=== PATIENT | female | born 1935 | race Caucasian/White ===

== ENCOUNTER 2017-03-17 10:41 | Inpatient (IN) | payer OTHER, MEDICAID ==
[~2017-03-17] VITALS: Ht 152.4 cm; Wt 61.0 kg
[~2017-03-17 10:41] MED LIST: ALLERGY10 MG PO; AMITRIPTYLINE50 MG PO; AMLODIPINE BES2.5 M1 PO; AMLODIPINE10 MG PO; BONIVA150 MG PO; CARVEDILOL3.125 MG PO; CEL100 PO; CLONIDINE HCL0.1 MG PO; CLONIDINE HCL0.2 M1 PO; COR10 PO; COZ25 PO; DOCUSATE SODIU100 PO; DURAGESIC12 MCG/HR TOP; ECOTRIN81 M1 PO; ESCITALOPRAM10 MG PO; GOOD SENSE ASPI81 M3 PO; HYDROCHLOROTHIA PO; HYDROCORT CREAM2.5% TOP; HYDROCORTISONE PO; LEVOTHYROXINE0.05 M2 PO; LEXAPRO10 MG PO; LOSARTAN POTASS50 MG PO; MASON NATURAL1000 IU PO; MECLIZINE25 M1 PO; MYL80 PO; NEXIUM20 M PO; NEXIUM40 MG PO; NIT0.4 SL; OYSTER CAL 500500 MG PO; PATADAY2.5 ML OU; PENTOXIFYLLINE400 M1 PO; PHECL PO; PREMARIN0.625 M PO; PREMARIN0.625 MG PO; PROMETHAZINE D118 ML PO; PROMETHAZINE PO; SYMBICORT1 AE2 INH; SYN25 PO; VITAMIN B121000 MCG PO; [UNRECOGNIZED DRUG - CODE] TOP
--- NOTE | 2017-03-17 10:57 | NUR ---
BROUGHT IN BY AMBULANCE, AWAKE ALERT ORIENTED, STATED HAS BEEN HAVING ABDOMINAL PAIN WITH N/VOMITING AND DIARRHEA SINCE ONE WEEK,
--- NOTE | 2017-03-17 12:04 | NUR ---
IV ESTABLISHED, BLOOD DRAWN ,MEDICATED ORDERD FOR PAIN,
[2017-03-17 12:12] LABS: CARBON DIOXIDE 16.9 mmol/L (21-32); CHLORIDE SERUM 105 mmol/L (98-107); CREATININE SERUM 1.5 mg/dL (0.6-1.0); GLUCOSE SERUM 74 mg/dL (74-106); PLATELET COUNT 322 x10^3mcL (130-400); POTASSIUM SERUM 4.5 mmol/L (3.5-5.1); SODIUM SERUM 138 mmol/L (136-145)
[2017-03-17 12:17] LABS: ALKALINE PHOSPHATASE 69 U/L (46-116); ALT/SGPT 16 U/L (14-59); AST/SGOT 22 U/L (15-37); BILIRUBIN TOTAL 0.35 mg/dL (0.20-1.00); TOTAL PROTEIN, SERUM 6.6 g/dL (6.4-8.2)
[2017-03-17 12:18] LABS: ALBUMIN 2.5 g/dL (3.4-5.0)
--- NOTE | 2017-03-17 12:49 | NUR ---
PT TO XRAY VIA ALFREDO
--- NOTE | 2017-03-17 12:59 | NUR ---
PT BROUGHT BACK TO FROM CT VIA GURNEY NO DISTRESS NOTED AT THIS TIME.
[2017-03-17 13:54] LABS: UA SPECIFIC GRAVITY 1.015 (1.005-1.035); microscopic required? YES; urine erythrocyte TRACE (NEGATIVE)
--- NOTE | 2017-03-17 14:48 | NUR ---
PT GIVEN MEDS PER DR BRITO ORDERS. PT EDUCATED ON MED AND VERBALIZED UNDERSTANDING OF TEACHING. PT DENIES ANY ALLERGIES TO MEDS. PT IV PATENT WITH NO COMPLICATIONS NOTED
--- NOTE | 2017-03-17 15:21 | NUR ---
ADMISSION REPORT GIVEN TO BLAKE CROFT EXT [id number] TO CONTINUE CARE.
--- NOTE | 2017-03-17 16:00 | NUR ---
REC'D PT FROM ER VIA MIKEL. PT IS AAOX3, FORGETFUL AT TIMES. C/O MILD DIZZINESS AND SARAH. TELE #38 SR. RESP EVEN AND UNLABORED. NO SOB NOTED. ABD SOFT. BS ACTIVE X4. C/O 8 ABD PAIN. DENIES N/V AT THIS TIME. SKIN TEAR NOTED TO ARIANE. DRESSING, CDI. ECCHYMOSIS NOTED TO BLE. IV NOTED TO RAC. INTACT AND PATENT. ORIENTED PT TO CALL LIGHT. BED IN LOWEST POSITION. WILL ENDORSE TO PRIMARY RN.
[2017-03-17 16:22] VITALS: BP 145/66
[2017-03-17 16:25] LABS: T3 TOTAL 1.28 ng/mL
[2017-03-17 16:30] LABS: FREE T4 1.56 ng/dL (0.76-1.46); FREE THYROXINE INDEX 3.6 ug/dL (1.4-4.5); T4(THYROXINE) 8.9 ug/dL (4.7-13.3)
[2017-03-17 16:31] LABS: MAGNESIUM 2.1 mg/dL (1.8-2.4); PHOSPHOROUS 4.7 mg/dL (2.5-4.9)
[2017-03-17 16:32] LABS: CHOLESTEROL/HDL RATIO 3.1
--- NOTE | 2017-03-17 17:30 | NUR ---
ASSUMED CARE FR DEMARCO RESOURCE NURSE.AAO X3.FORGETFUL.PORTUGUESE ONLY.LUNGS CLEAR.ON SR ON THE MONITOR.IVF NS GOING AT 70 ML/HR INFUSING WELL.ARIANE WITH SKIN TEAR WITH DRESSING CDI.BLE WITH ECCHYMOSIS.WAS MEDICATED W/ MORPHINE 2MG IVP ORDERED FOR C/O PAIN. CALL LIGHT WITHIN REACH.WILL CONTINUE TO MONITOR PT.
--- NOTE | 2017-03-17 19:30 | NUR ---
PT IS ALERT AND ORIENTED X4. PLEASANT AND COOPERATIVE. ROMANSH SPEAKING. LUNG SOUNDS ACTIVE AND PRESENT. NO DISTENTION NOTED.GENRALIZED WEAKNESS. STILL HAS IV NS AT 70 ML PER HOUR INFUSING WELL IN THE RIGHT AC. PATENT AND INTACT. MADE COMFORTABLE IN BED. CALL LIGHT WITHIN EASY REACH.
[2017-03-17 21:55] VITALS: BP 149/81
--- NOTE | 2017-03-17 22:23 | NUR ---
PT C/O SEVERE ABDOMINAL PAIN 02/26. MEDICATED WITH MORPHINE 2 MG IVPUSH. WILL MONITOR.
--- NOTE | 2017-03-18 05:52 | NUR ---
PT IS RESTING WELL AFTER THE MORPHINE DOSE. STILL HAS IV NS AT 70 ML PER HOUR INFUSING WELL. MADE COMFORTABLE IN BED. CALL LIGHT WITHIN EASY REACH. WILL MONITOR.
[2017-03-18 06:25] VITALS: BP 144/71
--- NOTE | 2017-03-18 06:56 | NUR ---
PT HAS A TEMPERATURE OF 100.3. MEDICATED WITH TYLENOL 650 MG PO. WILL MONITOR. USED BEDPAN.
[2017-03-18 07:11] LABS: CALCIUM 8.1 mg/dL (8.5-10.1); CARBON DIOXIDE 15.3 mmol/L (21-32); CHLORIDE SERUM 108 mmol/L (98-107); GLUCOSE SERUM 77 mg/dL (74-106); POTASSIUM SERUM 4.5 mmol/L (3.5-5.1); SODIUM SERUM 139 mmol/L (136-145)
[2017-03-18 07:54] LABS: BASOPHIL % 0.3 % (0-2); PLATELET COUNT 270 x10^3mcL (130-400); RED CELL DISTRIBUTION WIDTH 12.9 % (11.5-14.5)
--- NOTE | 2017-03-18 08:05 | NUR ---
RECEIVED PT IN BED A/A/OX4 DENIES SARAH. RESP EVEN AND UNLABORED WITH CLEAR BS BILAT. DENIES ANY SOB/CP/PRESSURE AT THIS TIME. IVF NS AT 70ML/HR TO RAC. ABD SOFT, TENDER TO TOUCH TO LT FLANK AND LOWER ABD. C/O 8/10 POIN, MEDICATED WITH MORPHINE IVP ORDEREDL. VOIDING FREELY STATES USING BEDPAN. REPORTS GEN WEAKNESS, ABLE TO AMBULATE WITH WALKER AT HOME. NOTED WITH PAPER THIN SKIN AND SKIN TEAR TO LUE, WITH SCATTERED ECCHYMOSIS AND BRUISING GREATER TO BLE. CALL LIGHT IN REACH NEEDS ATTENDED TO.
[2017-03-18 09:14] VITALS: BP 147/64
[2017-03-18 09:34] VITALS: BP 147/64
--- NOTE | 2017-03-18 12:00 | NUR ---
PT RESTING COMFORTABLY AT THIS TIME. DENIES ANY DISCOMFORT. CALL LIGHT IN REACH NEEDS ATTENDED TO.
[2017-03-18 13:14] VITALS: BP 130/73
[2017-03-18 17:10] VITALS: BP 157/69
--- NOTE | 2017-03-18 17:40 | NUR ---
PT C/O PAIN MEDICATED WITH MORPHINE IVP ORDERED FOR C/O LT FLANK/ABD PAIN.
--- NOTE | 2017-03-18 18:30 | NUR ---
PT RESTING AT THIS TIME. WITH ONGOING IVF ORDERED. PT WAS ABLE TO GET UP TO BSC WITH PT FOR EVAL. HAD DIARRHEA EPISODE. DENIED ANY N/V. PT HAD FAIR APPETITE. REFUSED SCDS STATING THAT IT HURT HER LEGS. CALL LIGHT IN REACH NEEDS ATTENDED TO.
--- NOTE | 2017-03-18 19:30 | NUR ---
PT IS ALERT AND ORIENTED X4, PLEASANT AND COOPERATIVE. FORGETFUL AND VIETNAMESE SPEAKING. CLEAR LUNG SOUNDS ON AUSCULTATIONS BILATERALLY UPPER AND LOWER BASES. GENERALIZED WEAKNESS. STILL HAS IV NS AT 70 ML PER HOUR INFUSING WELL IN THE RIGHT AC. PATENT AND INTACT. STILL GETTING ROCEPHIN 1 GM DAILY IV. NO NAUSEA AND VOMITING NOTED. RESTING AND QUIET IN BED. CALL LIGHT WITHIN EASY REACH.
[2017-03-18 21:01] VITALS: BP 145/73
--- NOTE | 2017-03-19 05:16 | NUR ---
PT IS RESTING WEL. STILL HAS IV NS AT 70 ML PER HOUR INFUSING WELL IN THE RIGHT AC. PATENT AND INTACT. MADE COMFORTABLE IN BED. CALL LIGHT WITHIN EASY REACH.
[2017-03-19 05:42] VITALS: BP 165/82
[2017-03-19 07:08] LABS: CALCIUM 8.5 mg/dL (8.5-10.1); CARBON DIOXIDE 17.6 mmol/L (21-32); CHLORIDE SERUM 107 mmol/L (98-107); CREATININE SERUM 0.9 mg/dL (0.6-1.0); GLUCOSE SERUM 75 mg/dL (74-106); POTASSIUM SERUM 4.1 mmol/L (3.5-5.1); SODIUM SERUM 140 mmol/L (136-145)
[2017-03-19 07:17] LABS: BASOPHIL % 0.3 % (0-2); PLATELET COUNT 323 x10^3mcL (130-400); RED CELL DISTRIBUTION WIDTH 12.9 % (11.5-14.5)
--- NOTE | 2017-03-19 08:18 | NUR ---
AT 0745 - RECEIVED PATIENT FROM NIGHT NURSE. PATIENT AWAKE, ALERT AND APPEARS ORIENTED. SAT UP IN BED FOR BREAKFAST. MONITOR SHOWING SINUS RHYTHM; RATE 92. NO C/O PAIN. IV INFUSING NS AT 70ML/HR.
[2017-03-19 10:04] VITALS: BP 155/77
--- NOTE | 2017-03-19 12:42 | NUR ---
AT 1030 - SEEN BY DR NAIK DURING MORNING ROUNDS. MEDICAL TEAM DOCTORS, LENO COELLO AND MYSELF PRIMARY NURSE ALSO PRESENT. SPOKE WITH PATIENT USING WIRE ROPE SALES REPRESENTATIVE. PLAN FOR DC HOME TODAY. PATIENT VERBALIZED AGREEMENT.
[2017-03-19 13:57] VITALS: BP 128/63
[2017-03-19 18:01] VITALS: BP 149/47
--- NOTE | 2017-03-19 18:40 | NUR ---
AT 1700 - PATIENT HAS HAD 7 LOOSE/DIARRHEA BOWEL MOVEMENTS TODAY. DR MORELAND MADE AWARE. NO NEED FOR CHANGE IN ORDERS AT THIS TIME. AT 1750 - PATIENT REFUSED TO EAT DINNER AT THIS TIME. SAYS THAT SHE IS NOT HUNGRY. OTHERWISE PATIENT REMAINS ORIENTED X 3. VSS AND WNL. AFEBRILE. HAS BEEN TAKEN OFF CARDIAC MONITORING STATUS CHANGED TO MED-SURG. BLOOD GLUCOSE LEVELS WITHIN NORMAL RANGE TODAY. IV IFNUSING NS AT 70ML/HR. VOIDING IN BEDPAN. PATIENT HAS DECLINED TO GET OUT OF BED AND AMBULATE TODAY. SAID THAT SHE FELT TOO WEAK. WILL ENDORSE CARE TO NIGHT NURSE.
--- NOTE | 2017-03-19 19:30 | NUR ---
PT IS ALERT AND ORIENTED X3. FORGETFUL. ALBANIAN SPEAKING. CLEAR LUNG SOUNDS ON AUSCULTATIONS BILATERALLY UPPER AND LOWER BASES. STILL HAS IV NS AT 70 ML PER HOUR INFUSING WELL IN THE RIGHT AC. PATENT AND INTACT. MADE COMFORTABLE IN BED. CALL LIGHT WITHIN EASY REACH. STILL GETTING ROCEPHIN IV 1 GM. MS PT. PT HAS FREQUENT DIARRHEA TODAY HOLD COLACE FOR NOW. PT HAS BILATERAL BOTH ARMS LIKE PAPER THIN SKIN. USING BEDPAN MOST OF THE TIMES. BUT SHE CAN HAVE INCONTINENCY. KEEP CLEAN AND DRY AT THE SAME TIMES WILL CONTINUE TO MONITOR.
[2017-03-19 21:15] VITALS: BP 167/71
--- NOTE | 2017-03-20 01:24 | NUR ---
PT C/O LOOSE STOOLS X 5X. DR OROURKE WAS NOTIFIED. ORDERED FLAGYL PO. WILL MONITOR. ADMINSITERED FLAGYL PO. WILL MONITOR.
--- NOTE | 2017-03-20 01:42 | NUR ---
PT C/O SEVERE BODY ACHES AND HEADACHE 02/26. MEDICATED WITH MORPHINE 2 MG IVPUSH. WILL MONITOR.
--- NOTE | 2017-03-20 05:12 | NUR ---
PT IS RESTING. INCONTINENT OF URINE AND DIARRHEA. KEEP CLEAN AND DRY ALL TIMES. STILL HAS IV NS AT 70 ML PER HOUR RIGHT HAND. STILL RECEIVING ROCEPHIN 1 GM DAILY FOR UTI. WITHOUT ADVERSE REACTION NOTED. FLAGYL 250 MG PO WAS ADMINSITERED. WILL CONTINUE TO MONITOR.
[2017-03-20 06:05] VITALS: BP 171/76
[2017-03-20 06:31] LABS: CALCIUM 8.4 mg/dL (8.5-10.1); CARBON DIOXIDE 17.7 mmol/L (21-32); CHLORIDE SERUM 105 mmol/L (98-107); CREATININE SERUM 0.8 mg/dL (0.6-1.0); GLUCOSE SERUM 82 mg/dL (74-106); POTASSIUM SERUM 3.7 mmol/L (3.5-5.1); SODIUM SERUM 138 mmol/L (136-145)
[2017-03-20 07:08] LABS: BASOPHIL % 0.3 % (0-2); PLATELET COUNT 326 x10^3mcL (130-400); RED CELL DISTRIBUTION WIDTH 12.5 % (11.5-14.5)
--- NOTE | 2017-03-20 07:30 | NUR ---
PATIENT IS IN BED, APPEARS TO BE RESTING WELL. AROUSED EASILY TO NAME. IVF INFUSING WELL. ALERT ORIENTED, ARMENIAN SPEAKING, FORGETFUL AT TIMES. RESP EVEN AND UNLABORED, LUNGS CLEAR ON ROOM AIR. NO LOOSE STOOLS NOTED AT THIS TIME. USES BEDPAN WITH ASSIST PRN. GENERALIZED WEAKNESS NOTED. PHYSICAL THERAPY TO SEE PATIENT TODAY. PER PATIENT SHE USES A WALKER AT HOME AND THAT SHE LIVES AT HOME BY HERSELF. ABD SOFT, BOWEL SOUNDS ACTIVE. NO EDEMA NOTED. PATIENTS SKIN ON BILATAL ARMS, NOTED WITH ECCHYMOSIS AND S/T ON LEFT UPPER ARM. PATIENT'S SKIN APPEARS TO BE PAPER THIN. DISCOLORED BLE NOTED WELL. WILL CONTINUE TO MONITOR.
--- NOTE | 2017-03-20 08:44 | NUR ---
PATIENT REFUSING TO ALLOW HER B/P TO BE TAKEN. AFTER MUCH ENCOURAGEMENT PATIENT DID AGREE TO HAVE IT TAKEN. PATIENT'S HOB ELEVATED AND MEDICATIONS GIVEN. PATIENT SPIT OUT MEDS AND REFUSED TO TAKE THEM. PATIENT BEGAN TO COUGH AND HAD A SMALL EMESIS OF CLEAR YELLOW LIQUID. BETHANY LEWIS DONE, PT APPEARS TO BE RESTING.
--- NOTE | 2017-03-20 09:15 | NUR ---
DR NAIK AND MEDICAL TEAM INTO SEE PATIENT AND DISCUSS PLAN OF CARE.
--- NOTE | 2017-03-20 09:18 | NUR ---
PATIENT C/O GENERALIZED PAIN 7/10 ON THE PAIN SCALE. MEDICATED WITH TORADOL IV BY KARLO BETH RN. WILL MONITOR FOR EFFECT.
[2017-03-20 09:22] VITALS: BP 150/86
--- NOTE | 2017-03-20 10:21 | NUR ---
PATIENT'S PLAN OF CARE WAS DISCUSSED AND REVIEWED WITH CLINICAL PHARMACY SPECIALIST:JAZ ROJAS
--- NOTE | 2017-03-20 13:47 | NUR ---
PATIENT'S CARE PROVIDER FROM HOME IS AT BEDSIDE. PATIENT TOLERATED CLEAR LIQUID LUNCH TRAY WELL. NO EMESIS OR DIARRHEA NOTED. WILL CONTINUE TO MONITOR.
--- NOTE | 2017-03-20 15:43 | NUR ---
PHYSICAL THERAPY DAILY NOTES CO-SIGN All documentation done by the Balance Truing Inspector for 03/20/17 has been reviewed. I agree with the documentation. Reviewed/Co-Signed by: Nirmala Mitchell PT Documentation Done by: DEION FORD NEWS BROADCASTER PT EDUCATED ON BENEFITS OF REHAB BASED ON CURRENT CONDITION AND CAREGIVER PRESENT ONLY DURING THE DAY BUT PT INSISTENT ON DC TO HOME WITH HOME HEALTH.
[2017-03-20 16:26] VITALS: BP 148/91
[2017-03-20] MEDS ORDERED: LAC PO (16:38)
[2017-03-20] MEDS ORDERED: MAC100 PO (16:43)
--- NOTE | 2017-03-20 17:02 | NUR ---
PATIENT HAS HAD 3 LOOSE BM'S THIS AFTERNOON. REMAINS IN BED WITH IVF INFUSING. NO FURTHER EPISODES OF N/V. D/C PLAN FOR HOME TODAY WITH HOME HEALTH AND P.T. EVAL.
[2017-03-20 17:19] VITALS: BP 150/86
--- NOTE | 2017-03-20 18:32 | NUR ---
PATIENT TO D/C HOME. HOME HEALTH AND P.T. EVAL TO BE ARRANGED. NO ACUTE DISTRESS NOTED. WILL ENDORSE TO [facility] NURSE.
--- NOTE | 2017-03-20 18:44 | NUR ---
I HAVE REVIEWED THE DATA COLLECTION BY CAROLANN (NAME):JAZ ROJAS ENTERED ON (DATE/TIME): I CONCUR WITH THE DATA AND ANY EXCEPTIONS OR COMMENTS ARE LISTED BELOW:
--- NOTE | 2017-03-20 18:49 | NUR ---
PATIENT HAD ANOTHER SMALL EMESIS THIS EVENING AFTER CLEAR LIQUID DIET. WILFRIDO AT BEDSIDE AND DOES NOT FEEL IT IS SAFE TO TAKE PATIENT HOME THIS EVENING SHE WOULD BE BY HERSELF UNTIL 2 PM TOMORROW WHEN HER CARE PROVIDER ARRIVES. DR SCOTT AT BEDSIDE AND IS AWARE. D/C ON HOLD FOR NOW.
--- NOTE | 2017-03-20 20:01 | NUR ---
RECEIVED PT FROM PREVIOUS SHIFT NURSE. PT AOX4. DENIES CP/PRESSURE. FORGETFUL AT TIMES. MED SURG PT. PULSES PRESENT, NO EDEMA NOTED. LUNG SOUNDS CLEAR, ON RA. DENIES SOB/DIFFICULTY BREATHING. BOWEL SOUNDS ACTIVE. VOIDS FREELY, USES BED ZUÑIGA. GENERALIZED WEAKNESS. SKIN TEAR ON L. ARM. ECCHYMOSIS BLE/ BUE, SKIN PAPER THIN. IV IN L. HAND, INTACT AND PATENT. BED IN LOWEST POSITION. CALL LIGHT WITHIN REACH. WILL CONTINUE TO MONITOR.
[2017-03-20 20:47] VITALS: BP 144/75
--- NOTE | 2017-03-21 03:30 | NUR ---
PT HAD ONE EPISODE OF VOMITING, MEDICATED PER EMAR. WILL CONTINUE TO MONITOR.
[2017-03-21 05:54] VITALS: BP 160/81
--- NOTE | 2017-03-21 07:30 | NUR ---
PATIENT IS IN BED, AWAEK ALERT KYRGYZ SPEAKING. IVF INFUSING WELL TO LEFT HAND. RESP EVEN AND UNLABORED, LUNGS CLEAR ON ROOM AIR. PATIENT'S ABD SOFT AND ROUND, BOWEL SOUNDS ACTIVE. PATIENT INCONT OF LOOSE STOOL AT THIS TIME, PT IS ALSO INCONT OF URINE. PATIENT'S LOOSE STOOLS ARE VERY WATERY. PATIENT HAS DARK PURPLISH DISCOLORATION NOTED ON UPPER AND LOWER EXTREMITIES AND APPEARS TO HAVE A LARGE BLISTER ON LEFT LEG, INTACT AND CDL B DRIVER. SAMLL S/T COVERED WITH ISLAND DRESSING NOTED ON LEFT UPPER ARM. PATIENT'S SKIN APPEARS TO BE VERY THIN. NO EMESIS NOTED AT THIS TIME. WILL CONTINUE TO MONITOR.
--- NOTE | 2017-03-21 08:30 | NUR ---
DR NAIK AND MEDICAL TEAM INTO SEE PATIENT AND DISCUSS PLAN OF CARE.
[2017-03-21 10:00] VITALS: BP 140/84
--- NOTE | 2017-03-21 15:25 | NUR ---
PATIENT REMAINS IN BED WITH VISITOR AT BEDSIDE. PHYSICAL THERAPY HAS BEEN INTO SEE PATIENT. IVF INFUSING WELL. PATIENT CONTINUES TO HAVE WATERY STOOLS AND BE INCONT OF URINE. IVF INFUSING WELL.
--- NOTE | 2017-03-21 15:36 | NUR ---
Initial Nutrition Assessment Dx: Ileus PMHx: [place] with CAD, gastritis, osteoporosis, major depressive disorder, anxiety, HTN, CKD, hypothyroidism, asthma PSHx: Cholecystectomy (2007), hysterectomy (1982) Labs: BG 82, WBC 11.9 H, H/H 11.7/35 L; (03/17) ALB 2.5 L, A1C 5.7 Meds: Colace, D50, humulin R, lactinex, nitrostat, Prilosec, NS IV, synthroid, zofran Current Diet Order: (03/20) Clear Liquid (x1 day) PO Intakes: (03/18) B: 60%; (03/19) B: 60%; (03/20) D: 10%; (03/21) L: 50% Ht: 60", 5'. Wt: 134 lb, 61 kg. BMI: 26.3 kg/m2 (Overweight) IBW: 100 lb, 45 kg. %IBW: 136%. Adj BW: 109 lb, 49 kg. UBW: Unable to obtain Age: 82 Y/O F Food Allergies: None Skin: Thin skin dark purplish upper and lower extremities blister intact on L lower leg. Carson 18. Edema: None GI: Abd soft. Active bowel sounds. Last BM 03/21. Watery stool x1. I/O: 880/16 (+864 ml) Emesis: (03/20) x1; (03/21) x1 - per nursing notes Pt found with disorder of GI likely secondary to gastroenteritis vs ileus vs diverticulosis, lower back pain secondary to severe compression deformities per doctor's notes. Per doctor's progress note 03/20, pt was supposed to be discharge, but family was concerned about care overnight as grab jack worker will not be arriving at home until 1400 tomorrow, home health with PT set up for pt upon discharge, pt still complains of diarrhea. Per Bed Huddle reports, stools specimen collected, pending results for diarrhea. Pt is Uzbek-speaking only per nursing notes. Pt seen eating clear liquids during RD visit and does not wish to be disturbed during meal times. RD acknowledged. Per nursing notes, pt continues to have watery stools. Problem with: N: None. V: Yes x1. D: Yes. C: None. Problems with: Chewing: None. Swallowing: None. Current Appetite: Fair to Poor Estimated Nutritional Needs Based IBW 100 lb, 45 kg. Energy: 3533-9182 kcal/day (25-30 kcal/kg for Maintenance) Protein: 45-54 gm/day (1-1.2 gm/kg for Repletion) - Monitor renal function Fluids: 1350 ml/day (30 ml/kg Diarrhea) or per doctor Nutrition Diagnosis Inadequate oral intakes related to altered GI function as evidenced by diarrhea, emesis x1 Intervention 1. Continue Clear Liquid diet per doctor. 2. Consider advance as tolerated to Low Fiber/Residue diet if/when medically appropriate. 3. If diarrhea persists, consider Banatrol BID (80 kcal, <2 gm protien) when diet advances further than clear liquid diet. Monitor/Evaluate Goal: PO intakes to meet >75% of estimated needs with tolerance; Diarrhea/Emesis to subside Monitor: PO intakes/tolerance, labs, skin integrity, GI function, weights F/U in 2-3 days as HIGH risk (03/23-03/24)
--- NOTE | 2017-03-21 15:56 | NUR ---
PHYSICAL THERAPY DAILY NOTES CO-SIGN All documentation done by the Life Insurance Sales Agent for 03/21/17 has been reviewed. I agree with the documentation. Reviewed/Co-Signed by: Natalio Gambino PT Documentation Done by:DEION FORD TRANSMITTER OPERATOR POC REVIEWED W/ TRANSMITTER OPERATOR; PROGRESS ALYX.
[2017-03-21] MEDS ORDERED: PSYLLIUM0.4 GM PO (15:58)
[2017-03-21 16:40] VITALS: BP 140/84
--- NOTE | 2017-03-21 17:12 | NUR ---
PATIENT CONTIUNES TO HAVE WATERY BM THIS PM. MORE THAT 6 EPISODS OF INCONT OF BOWEL THIS SHIFT. DR. ELIZABETH MADE AWARE, WILL CONT. TO MONITOR.
[2017-03-21 18:07] VITALS: BP 126/80
--- NOTE | 2017-03-21 18:31 | NUR ---
PATIENT WENT DOWN TO CT VIA W/C HAS RETURNED AND IS BACK IN BED. IVF INFUSING WELL. WILL CONTINUE TO MONITOR.
--- NOTE | 2017-03-21 19:53 | NUR ---
RECEIVED PT FROM PREVIOUS SHIFT NURSE. PT AOX4. MED SURG PT. DENIES CP/PRESSURE. PULSES PRESENT, NO EDEMA NOTED. LUNG SOUNDS CLEAR, ON RA. DENIES SOB/DIFFICULTY BREATHING. BOWEL SOUNDS ACTIVE. VOIDS FREELY, INCONTINENT. GENERALIZED WEAKNESS. K PAD TO BACK. SKIN TEAR TO UPPER L. ARM. ECCHYMOSIS BLE AND BUE. PAPER THIN SKIN, BLISTER LOWER L. LEG. IV IN L. HAND,INTACT AND PATENT. BED IN LOWEST POSITION. CALL LIGHT WITHIN REACH. WILL CONTINUE TO MONITOR.
[2017-03-21 21:29] VITALS: BP 153/75
--- NOTE | 2017-03-22 00:44 | NUR ---
PT REQUESTED SLEEPING AID, MEDICATED PER EMAR. BED IN LOWEST POSITION. CALL LIGHT WITHIN REACH. WILL CONTINUE TO MONITOR.
[2017-03-22 05:43] VITALS: BP 152/85
[2017-03-22 07:50] LABS: CALCIUM 8.1 mg/dL (8.5-10.1); CARBON DIOXIDE 16.4 mmol/L (21-32); CHLORIDE SERUM 104 mmol/L (98-107); GLUCOSE SERUM 98 mg/dL (74-106); PHOSPHOROUS 3.9 mg/dL (2.5-4.9); POTASSIUM SERUM 3.3 mmol/L (3.5-5.1); SODIUM SERUM 137 mmol/L (136-145)
[2017-03-22 08:05] LABS: BASOPHIL % 0.2 % (0-2); PLATELET COUNT 347 x10^3mcL (130-400); RED CELL DISTRIBUTION WIDTH 12.6 % (11.5-14.5)
--- NOTE | 2017-03-22 08:42 | NUR ---
DR NAIK AND THE MEDICINE TEAM DID ROUNDS WITH PT. THE PLAN TODAY IS TO POSSIBLY SEND HER HOME TODAY. THEY WERE DISCUSSING HER DIARRHEA FREQUENCY.
--- NOTE | 2017-03-22 11:04 | NUR ---
AAO TIMES 4. NO TELE, MED SURG PATIENT. LUNGS CTA. NO SOB. O2 SAT ON RA 97%. BS'S ACTIVE TIMES 4. PERIPHERAL PULSES PALPABLE. NO EDEMA. PT NOT TOLERATING CLEAR LIQUIDS, VOMITING THEM UP. HAD A SMALL WATERY GREEN BM, INCONTINENT AND SOAKED INTO BED PAD. NO C/O PAIN. WITH VARIOUS BRUISES AND CLOSED PURPLE BRUISES. IV SITE CDI.
[2017-03-22] MEDS ORDERED: ZOF4 PO (14:46)
--- NOTE | 2017-03-22 15:06 | NUR ---
GAVE ZOFRAN 4 MG IVP AT 0958, PT C/O VOMITING. SHE VOMITED UP HER JELLO THIS AM. ALSO SHE VOMITED UP HER JELLO FROM LUNCH TODAY, I NOTIFIED DR ELIZABETH. I ALSO TOLD DR ELIZABETH THAT SHE HAS HAD 4 WATERY STOOLS TODAY, GREEN THAT HAVE BEEN ABSORBED BY THE PAD.
[2017-03-22 16:37] VITALS: BP 136/72
--- NOTE | 2017-03-22 17:25 | NUR ---
PHYSICAL THERAPY DAILY NOTES CO-SIGN All documentation done by the Sample Stitcher for 03/22/17 has been reviewed. I agree with the documentation. Reviewed/Co-Signed by: Natalio Gambino PT Documentation Done by:KELLY TOMLINSON WELDING ROBOT OPERATOR POC REVIEWED W/ WELDING ROBOT OPERATOR.
--- NOTE | 2017-03-22 18:08 | NUR ---
AAO TIMES 4. SLEEPING MOST OF DAY. REFUSED DINNER, AGREED TO DRINK APPLE JUICE. NO TELE. NO C/O PAIN. NO SOB. IV SITE CDI, PATENT. REFUSED BLOOD PRESSURE AT 1000 AND 1400, SHE FINALLY CONSENTED TO A BP CHECK AT 1800 TO RIGHT WRIST.
--- NOTE | 2017-03-22 20:00 | NUR ---
PT RESTING WITH EYES CLOSED. EASILY AROUSABLE WITH VERBAL STIMULI. A/A/O X4. DENIES DIZZINESS AND HEADACHE. BREATH SOUNDS CLEAR. BREATHING EVEN AND UNLABORED ON ROOM AIR. DENIES CHEST PAIN AND PRESSURE. BOWEL SOUNDS ACTIVE. NO C/O N/V AND ABD PAIN THUS FAR. SCATTERED ECCHYMOSIS NOTED ON BUE AND BLE. IV INTACT ON THE LEFT HAND INFUSING WITH NS AT 60 ML/HR. MADE PT COMFORTABLE. PLACED CALL LIGHT WITH IN REACH. WILL CONTINUE TO MONITOR.
[2017-03-22 22:24] VITALS: BP 154/74
--- NOTE | 2017-03-22 23:46 | NUR ---
PT X/O PAIN. GAVE PT ROBAXIN PO. PT TOLERATED MEDICATION WELL. WILL CONTINUE TO MONITOR.
[2017-03-23 05:36] VITALS: BP 185/86
--- NOTE | 2017-03-23 05:36 | NUR ---
PT TEMP 100.3. COOLING MEASURES IMPLEMENTED. WILL ENDORSE TO THE AM NURSE ACCORDINGLY.
--- NOTE | 2017-03-23 05:55 | NUR ---
PT BLOOD PRESSURE 186/86 HEART RATE 94. GAVE PT SCHEDULED CATAPRES PO EARLY. PT TOLERATED IT WELL. DR. ELIZABETH AWARE. WILL ENDORSE TO THE AM NURSE ACCORDINGLY.
[2017-03-23 05:58] LABS: BASOPHIL % 0.2 % (0-2); PLATELET COUNT 357 x10^3mcL (130-400); RED CELL DISTRIBUTION WIDTH 13.1 % (11.5-14.5)
[2017-03-23 06:22] LABS: CARBON DIOXIDE 18.2 mmol/L (21-32); CHLORIDE SERUM 103 mmol/L (98-107); CREATININE SERUM 0.9 mg/dL (0.6-1.0); GLUCOSE SERUM 104 mg/dL (74-106); MAGNESIUM 2.1 mg/dL (1.8-2.4); PHOSPHOROUS 3.1 mg/dL (2.5-4.9); POTASSIUM SERUM 3.4 mmol/L (3.5-5.1); SODIUM SERUM 134 mmol/L (136-145)
--- NOTE | 2017-03-23 08:00 | NUR ---
AAO TIMES 4. NO TELE. LUNGS CTA. NO SOB. O2 SAT ON RA 95%. BS'S ACTIVE TIMES 4. DEL ROSARIO WITH GENERALIZED WEAKNESS. IV SITE CDI. ECHYMOSIS AND CLOSED BLOOD BLISTERS TO BLE, ECHYMOSIS BUE. PERIPHERAL PULSES PALPABLE. NO EDEMA. SCD BLE. NO C/O PAIN. NO SOB. COOPERATIVE THIS AM. MEDICAL ROUNDS OCCURED AT [address] NAIK AND THE MEDICINE TEAM. THE PLAN TODAY IS TO POSSIBLY SEND HER HOME, PT REQUESTING TO GO HOME. DR NAIK AWARE THAT PT'S WBC'S THIS AM ARE 12.3, THAT SHE HAD A FEVER OF 100.3 LAST NOC, THAT SHE SOMETIMES REFUES BP CHECKS. THE DR'S ENCOURAGED HER TO ALLOW US TO CHECK HER BP. THEY ARE AWARE THAT HER STOOL FOR C DIFF IS NEGATIVE.
[2017-03-23 09:55] VITALS: BP 130/70
[2017-03-23] MEDS ORDERED: COZ25 PO (10:18)
--- NOTE | 2017-03-23 15:09 | NUR ---
GAVE PT AND SOFTWARE DEVELOPMENT COORDINATOR DISCHARGE INSTRUCTIONS AND PRESCRIPTION WAS SENT TO [facility] SUCCESSFULLY. TANO'D JUAN ANTIO INTACT. PT AND SOFTWARE DEVELOPMENT COORDINATOR VERBALIZED "I UNDERSTAND" TO ALL INSTRUCTIONS.
--- NOTE | 2017-03-23 16:00 | NUR ---
PHYSICAL THERAPY DAILY NOTES CO-SIGN All documentation done by the Orthodontist Small Business Owner for 03/23/17 has been reviewed. I agree with the documentation. I CONCUR W/LOGISTICS ASSOCIATE NOTE; CONT PER TX PLAN Reviewed/Co-Signed by: Makayla Webb V PT Documentation Done by: KELLY TOMLINSON LOGISTICS ASSOCIATE
== END 2017-03-23 15:30 | disposition home health service (06) | DRG 391 ==
LOC: ED 10:41 → DU 14:50 → MU 14:50 → DU 16:05 → MU 03-19 15:31
PROVIDERS: Emergency Medicine; Family Medicine Sports Medicine; ADMIT Family Medicine
DX: K57.90 Diverticulosis of intestine, part unspecified, without perforation or abscess without bleeding (principal); N17.0 Acute kidney failure with tubular necrosis; E43 Unspecified severe protein-calorie malnutrition; K56.7 Ileus, unspecified; N39.0 Urinary tract infection, site not specified; F32.9 Major depressive disorder, single episode, unspecified; R73.03 Prediabetes; K21.9 Gastro-esophageal reflux disease without esophagitis; I10 Essential (primary) hypertension; I25.10 Atherosclerotic heart disease of native coronary artery without angina pectoris; I25.2 Old myocardial infarction; M43.9 Deforming dorsopathy, unspecified; E03.9 Hypothyroidism, unspecified; Z98.1 Arthrodesis status; Z68.26 Body mass index [BMI] 26.0-26.9, adult
CPT/HCPCS: 82962; 83880; 84439; 87046; 87046-59; 90658; 97110-GP; 97116-GP; 97530-GP; J0696; J1885; J2270; J2405; J3475; J7030; J7613; Q0092